=== PATIENT | female | born 1985 | race Caucasian/White ===

== ENCOUNTER 2016-11-06 17:00 | Emergency (ER) | payer OTHER ==
[~2016-11-06 17:00] MED LIST: ALBUTEROL17 GM INH; AMOXICILLIN500 M1 PO; AMOXICILLIN875 MG PO; BACITRACIN15 GM OINT EXT; BENZONATATE PO; BROMPHED DM; FLONASE 0.05% N16 G1 INH; MEDROL4 MG/DOSE- PO; NO MEDICATIONS; PHENERGAN DM1 ML PO; PRENATAL MULITV1 TAB PO; SUDAFED PO; TYLENOL #3 PO; VIBRAMYCIN100 M1 PO; ZITHROMAX PO; ZYRTEC10 M2 PO
== END 2016-11-06 18:37 | disposition home or self-care (01) ==
LOC: SED 17:00
DX: L05.91 Pilonidal cyst without abscess (principal); F17.210 Nicotine dependence, cigarettes, uncomplicated; Z91.040 Latex allergy status; Z79.899 Other long term (current) drug therapy
CPT/HCPCS: 10080; 99283